=== PATIENT | female | born 1965 | race Caucasian/White ===

== ENCOUNTER → 2017-07-02 | Outpatient (CLI) | payer BC ==
[~2017-07-02] MED LIST: ADVIL200 MG PO; ANTIVERT 25MG25 MG PO; DEMEROL 50M50 MG/TAB PO; LASIX 20MG TABL20 MG PO; OMNICEF 300MG300 MG PO; PEPCID AC20 MG PO; PERCOCET 325 MG1 TA2 PO; PHENERGAN 25 TA25 MG PO; TOPROL XL 25MG25 MG PO; TREXIMET 500 MG1 TAB PO; TYLENOL 325MG325 MG PO; ULTRAM 50MG TAB50 MG PO; ZANTAC 150MG T150 MG PO; [UNRECOGNIZED DRUG - OTHER] PO
== END ==
LOC: COL.RAD 11:17
DX: H92.01 Otalgia, right ear (principal)

== ENCOUNTER 2019-03-12 02:36 | Emergency (ER) | payer BC ==
[~2019-03-12] VITALS: Ht 177.8 cm; Wt 102.3 kg
[2019-03-12] MEDS ORDERED: ASPIRIN 81M81 MG/TA2 PO (02:47)
[2019-03-12 03:17] LABS: BASO # 0.1 (0.0-0.2); BASO % 0.6 % (0.0-2.0); GRAN # 6.5 (1.4-6.5); GRAN % 75.7 % (42.2-75.2); HEMATOCRIT 38.4 % (37.0-47.0); HEMOGLOBIN 13.2 g/dl (12.5-16.0); LYMPH % 11.4 % (20.0-51.0); MEAN CELL VOLUME 86 fl (80.0-100.0); MEAN CORPUSCULAR HEMOGLOBIN 29 pg (27.0-31.0); MEAN CORPUSCULAR HGB CONC 34 g/dl (33.0-37.0); MEAN PLATELET VOLUME 9.5 fl (7.4-10.4); MONO % 12.1 % (1.7-9.3); PLATELET COUNT 291 K/mm3 (130-400); RED BLOOD COUNT 4.49 M/mm3 (4.10-5.30); REDCELL DISTRIBUTION WIDTH-CV 12.2 % (11.5-14.5)
[2019-03-12 03:25] LABS: ALANINE AMINOTRANSFERASE 30 U/L (9-52); ALBUMIN 4.3 gm/dL (3.5-5.0); ALKALINE PHOSPHATASE 96 U/L (50-136); ANION GAP 13 mmol/L (7-16); AST,SGOT 29 U/L (15-37); BILIRUBIN,TOTAL 0.3 mg/dL (0.0-1.0); BLOOD UREA NITROGEN 7 mg/dL (7-17); CALCIUM 8.9 mg/dL (8.4-10.2); CARBON DIOXIDE 23 mmol/L (22-30); CHLORIDE 98 mmol/L (98-107); CREATININE, serum 0.59 (0.52-1.25); GLUCOSE 164 mg/dL (74-106); LIPASE 430 U/L (23-300); POTASSIUM 3.6 mmol/L (3.4-5.0); SODIUM 134 mmol/L (137-145); TOTAL PROTEIN 7.2 gm/dL (6.4-8.2)
[2019-03-12 03:59] LABS: TROPONIN-I < 0.012 ng/mL (0.000-0.035)
[2019-03-12 04:27] LABS: COLLECTION METHOD CLEAN CATCH
[2019-03-12 04:33] LABS: MUCOUS Present /lpf; PH 6 (5-8); SQUAMOUS EPITHELIAL 0-2 /hpf; URINE APPEARANCE Clear; URINE BACTERIA None Seen /hpf; URINE BILIRUBIN Negative (NEGATIVE); URINE BLOOD Negative (NEGATIVE); URINE COLOR Straw; URINE GLUCOSE Negative (NEGATIVE); URINE KETONE Negative (NEGATIVE); URINE LEUKOCYTE ESTERASE Negative (NEGATIVE); URINE NITRATE Negative (NEGATIVE); URINE PROTEIN(semi-quant) Negative (NEGATIVE); URINE RBC 0-2 /hpf; URINE UROBILINOGEN Negative (NEGATIVE)
[2019-03-12] MEDS ORDERED: TESSALON PERLE200 MG PO (05:25)
[2019-03-12] MEDS ORDERED: PHENERGAN 25 TA25 MG PO (05:25)
[2019-03-12 06:35] VITALS: BP 153/84; TEMP 98.3
[2019-03-12 07:00] VITALS: PULSE 104
== END 2019-03-12 07:00 | disposition home or self-care (01) ==
LOC: COL.ER 02:36
PROVIDERS: Emergency Medicine
DX: J09.X2 Influenza due to identified novel influenza A virus with other respiratory manifestations (principal); Z79.82 Long term (current) use of aspirin
CPT/HCPCS: J1170; J1885; J2550; J7030

== ENCOUNTER → 2021-09-20 | Outpatient (CLI) | payer BC ==
[~2021-09-20] VITALS: Ht 177.8 cm; Wt 94.3 kg
[~2021-09-20] MED LIST changes: +ASPIRIN 81M81 MG/TA2 PO; +FLEXERIL 1010 MG/TAB PO; +LYRICA 50MG CAP50 MG PO; +ONE DAILY ESSE0.5 M1 PO; +TESSALON PERLE200 MG PO; +VALTREX 50500 MG/TAB PO
[2021-09-20 09:12] VITALS: BP 147/82; PULSE 95; TEMP 98.3
[2021-09-20 10:05] VITALS: BP 124/82; PULSE 93
[2021-09-20 10:15] VITALS: BP 127/81; PULSE 84
[2021-09-20 10:30] VITALS: BP 137/79; PULSE 95
== END ==
LOC: COL.RAD 08:26
DX: M48.07 Spinal stenosis, lumbosacral region (principal); M47.817 Spondylosis without myelopathy or radiculopathy, lumbosacral region
CPT/HCPCS: J2704; J3010; J7120

== ENCOUNTER 2021-10-28 12:45 | Outpatient (RCR) | payer BC ==
[2021-11-25] MEDS ORDERED: TURMERIC500 MG (14:22)
== END 2021-11-06 | disposition home or self-care (01) ==
LOC: MKS.ESL.PT
DX: M79.2 Neuralgia and neuritis, unspecified (principal); M79.604 Pain in right leg; G89.29 Other chronic pain; M54.9 Dorsalgia, unspecified; G37.3 Acute transverse myelitis in demyelinating disease of central nervous system; M25.551 Pain in right hip

== ENCOUNTER → 2021-10-30 | Outpatient (CLI) | payer BC | LOC: MHCPAIN 12:16 | DX: M47.897 Other spondylosis, lumbosacral region (principal); M53.3 Sacrococcygeal disorders, not elsewhere classified; M54.16 Radiculopathy, lumbar region | CPT/HCPCS: G0463 ==

== ENCOUNTER → 2021-11-28 | Outpatient (CLI) | payer BC ==
[~2021-11-28] VITALS: Ht 177.8 cm; Wt 96.4 kg
[~2021-11-28] MED LIST changes: +TURMERIC500 MG
[2021-11-28 08:55] VITALS: BP 157/85; PULSE 103; TEMP 98.1
[2021-11-28 10:41] VITALS: BP 127/51; PULSE 94
[2021-11-28 11:00] VITALS: BP 130/76; PULSE 86
[2021-11-28 11:15] VITALS: BP 128/84; PULSE 73
[2021-11-28 11:25] VITALS: BP 138/83; PULSE 70
== END ==
LOC: COL.RAD 08:29
DX: M79.2 Neuralgia and neuritis, unspecified (principal); M79.604 Pain in right leg; G89.29 Other chronic pain; M54.9 Dorsalgia, unspecified; G37.3 Acute transverse myelitis in demyelinating disease of central nervous system; M25.551 Pain in right hip; B02.29 Other postherpetic nervous system involvement; M35.9 Systemic involvement of connective tissue, unspecified
CPT/HCPCS: A9575; J2704

== ENCOUNTER 2022-01-01 09:45 | Outpatient (RCR) | payer BC | END 2022-01-06 | disposition home or self-care (01) | LOC: MKS.ESL.PT | DX: M48.061 Spinal stenosis, lumbar region without neurogenic claudication (principal); G37.3 Acute transverse myelitis in demyelinating disease of central nervous system; M79.2 Neuralgia and neuritis, unspecified; M79.604 Pain in right leg; G89.29 Other chronic pain; Z86.19 Personal history of other infectious and parasitic diseases ==